=== PATIENT | female | born 1950 | race Caucasian/White ===

== ENCOUNTER 2017-10-21 11:47 | Emergency (ER) | payer OTHER ==
[~2017-10-21] VITALS: Ht 157.5 cm; Wt 67.6 kg
[~2017-10-21 11:47] MED LIST: ALBU1NEB10 INH; ALBUAER2 INH; ASCO100061 PO; ASPI1TAB66 PO; ATOR-54 PO; ATRINSX NEB; BENZ100C7 PO; CHOL100041 PO; CLON0.5T3 PO; CLOP1TAB15 PO; CYAN1SUB6 PO; DOXY-300 PO; FLUT0.0529 NAE; GLC5 PO; HYG/25 PO; HYOS0.1255 PO; IMDSR60 PO; LEVO75TA5 PO; METO50TA7 PO; MULTTAB58 PO; NTRGSL/4 UT; PANT40TA PO; PROB1CAP32 PO; REPA0.5T PO
[2017-10-21 11:50] VITALS: TEMP 36.8; Ht 157.5 cm; Wt 67.6 kg
[2017-10-21] MEDS ORDERED: HYDROCODONE/ACETAMOPHEN 5/325MG TAB PO STA (12:05)
[2017-10-21] MEDS ORDERED: KETOROLAC TROMETHAMINE 60 MG/2 ML VIAL IM STA (12:05)
[2017-10-21] MEDS ORDERED: DEXAMETHASONE SOD INJ 4 MG/ML 5 ML VIAL IM STA (12:05)
[2017-10-21] MEDS ORDERED: DEXAMETHASONE **PF** INJ 10 MG/ML VIAL ONE (12:15)
[2017-10-21] MEDS ORDERED: VITACAP25 PO (12:47)
[2017-10-21] MEDS ORDERED: BIOT1CAP9 (12:47)
[2017-10-21] MEDS ORDERED: FLUT0.15 NAE (12:47)
[2017-10-21] MEDS ORDERED: PRVHFAIN INH (12:47)
[2017-10-21] MEDS ORDERED: ATOR-26 PO (12:47)
[2017-10-21] MEDS ORDERED: ECHI450C PO (12:47)
[2017-10-21] MEDS ORDERED: LXP10 PO (12:47)
[2017-10-21] MEDS ORDERED: EMPA1TAB PO (12:47)
[2017-10-21] MEDS ORDERED: LEVO50TA6 PO (12:47)
[2017-10-21] MEDS ORDERED: ALBINS/ INH (12:47)
[2017-10-21] MEDS ORDERED: MAGN250T9 PO (12:47)
[2017-10-21] MEDS ORDERED: REPA1TAB5 PO (12:47)
[2017-10-21] MEDS ORDERED: NPR375 PO (12:47)
--- NOTE | 2017-10-21 13:19 | DIAGNOSTIC IMAGING REPORT ---
L-SPINE MIN 4 VIEWS ROUTINE CLINICAL HISTORY: 67 years-old Female presenting with low back pain with right radiculopathy. TECHNIQUE: Frontal, bilateral oblique, lateral, and coned in lateral views of the lumbar spine were obtained. COMPARISON: Correlation made to CT of the abdomen and pelvis from 09/04/2016. FINDINGS: Normal lumbar lordosis. Vertebral bodies maintain normal height and alignment. Intervertebral disc spaces preserved. No advanced degenerative change. No compression deformity or evidence of subluxation. No pars defects noted. Moderate stool burden throughout the colon. No evidence of obstruction. Severe atherosclerosis of the abdominal aorta. IMPRESSION: No radiographic evidence of acute osseous injury of the lumbar spine are advanced degenerative change. Electronically signed by: Fab Chapman M.D. 10/21/2017 1:18 PM Dictated Date/Time: 10/21/2017 1:15 PM
--- NOTE | 2017-10-21 13:33 | EMERGENCY ROOM VISIT NOTE ---
ED Visit Note First contact with patient: 11:57 CHIEF COMPLAINT: Right leg pain HISTORY OF PRESENT ILLNESS: This 67-year-old female presents the ER with chief complaint of right leg pain. The patient denies any redness, swelling of the right leg. The patient states that the pain started in the buttocks and right thigh 4 days ago and now is radiating down the back of her leg. The patient denies any recent injury to her back or any back pain. The patient does admit to having back surgery in 2001. She states that was performed in [place] where they just moved a muscle off of a nerve. The patient currently denies any urinary symptoms or any loss of bowel or bladder control. The patient denies any saddle anesthesia. The patient denies any chest pain or shortness of breath. The patient denies any history of blood clots. The patient states that she called her doctor today and they told her to come to the emergency room. REVIEW OF SYSTEMS: 10 system review was performed and was negative unless stated otherwise history of present illness. PMH: The patient is healthy; there is no significant medical or surgical history. SOCIAL HISTORY: Patient lives at home. PHYSICAL EXAM: Vital Signs normal: Reviewed Nurse's notes and agree. GEN.: 67- year-old white female appears in no acute distress. MENTAL STATUS: Alert and oriented in no acute distress. LUMBAR SPINE: No gross bony abnormality noted. Patient is tender to palpation over lower the spinous processes. She is tender to palpation over the right paravertebral region, left side nontender. She has full range of motion of the lumbar spine with pain elicited with flexion,. Muscle strength is 5 out of 5 bilateral lower extremities and symmetrical. NEURO : Patient is able to heel and toe walk without difficulty. I lateral patellar and Achilles reflexes are 2+. Sensation is intact to pinprick bilateral lower extremities. Positive straight leg raise on the right. RIGHT LEG: No erythema or edema noted. No palpable cords noted. The patient has mild tenderness palpation in the posterior calf and proximal anterior thigh. Negative Homans. EMERGENCY DEPARTMENT COURSE: The patient was evaluated. The patient was given Decadron 10 mg IM, Toradol 60 mg IM and [place] 5/325 mg one tablet by mouth for pain. X-ray of the lumbar spine was ordered and interpreted by the radiologist and myself. DIAGNOSTICS:L-SPINE MIN 4 VIEWS ROUTINE CLINICAL HISTORY: 67 years-old Female presenting with low back pain with right radiculopathy. TECHNIQUE: Frontal, bilateral oblique, lateral, and coned in lateral views of the lumbar spine were obtained. COMPARISON: Correlation made to CT of the abdomen and pelvis from 09/04/2016. FINDINGS: Normal lumbar lordosis. Vertebral bodies maintain normal height and alignment. Intervertebral disc spaces preserved. No advanced degenerative change. No compression deformity or evidence of subluxation. No pars defects noted. Moderate stool burden throughout the colon. No evidence of obstruction. Severe atherosclerosis of the abdominal aorta. IMPRESSION: No radiographic evidence of acute osseous injury of the lumbar spine are advanced degenerative change. Electronically signed by: Fab Chapman M.D. 10/21/2017 1:18 PM The patient was informed of the findings. She was reevaluated was feeling much better. She was independently evaluated by Dr. Castellanos who agreed with treatment plan. The patient was discharged home with her driving. DIAGNOSIS: Right sciatica DISCHARGE INSTRUCTIONS AND TREATMENT: Ibuprofen 600 mg every 6 hours with food for pain. Rx is given for [place] 5/325 mg. 1-2 tablets every 6 hours as needed for more severe pain. Dispense [address] taking the [place] .take Medrol dosepak as prescribed. Start this tomorrow. Avoid staying in any one position for an extended period of time. If symptoms persist or worsen, follow up with your family doctor for referral for additional testing. Problem List Medical Problems: (1) CAD (coronary artery disease) Status: Chronic (2) Carotid stenosis Status: Chronic (3) COPD (chronic obstructive pulmonary disease) Status: Chronic (4) DM2 (diabetes mellitus, type 2) Status: Chronic (5) History of left heart catheterization (LHC) Permanent Comment: 6 stents total, last stent WILTON in 2010 Status: Chronic (6) HTN (hypertension) Status: Chronic (7) Hypothyroidism Status: Chronic (8) Tobacco abuse Status: Chronic Surgical Problems: (1) H/O colonoscopy Status: Chronic (2) History of carpal tunnel surgery Status: Chronic Current/Historical Medications Scheduled Ascorbic Acid (Ascorbic Acid), 1,000 MG PO DAILY Aspirin (Ec-81 Aspirin), 81 MG PO DAILY Atorvastatin (Lipitor), 80 MG PO DAILY Chlorthalidone (Hygroton), 25 MG PO DAILY Cholecalciferol (D 1000), 1,000 UNIT PO DAILY Clonazepam (Klonopin), 0.5 MG PO HS Cyanocobalamin (B-12), 2,500 MCG PO DAILY Doxycycline (Monohydrate) (Doxycycline), 100 MG PO BID Echinacea (Echinacea), 900 MG PO DAILY Empagliflozin (Jardiance), 10 MG PO DAILY Escitalopram Oxalate (Escitalopram Oxalate), 10 MG PO DAILY Fluticasone Propionate (Nasal) (Flonase Allergy Relief), 2 SPRAYS VANESSA DAILY Glipizide (Glipizide), 5 MG PO 30 MIN BEFORE A MEAL Isosorbide Mononitrate (Isosorbide Mononitrate ER), 60 MG PO DAILY Levothyroxine Sodium (Levothyroxine Sodium), 50 MCG PO DAILYBB Magnesium (Magnesium), 250 MG PO DAILY Metoprolol Succ (Toprol Xl) (Toprol-Xl), 50 MG PO DAILY Naproxen (Naproxen), 375 MG PO BIDM Pantoprazole Sodium (Protonix), 40 MG PO DAILY Repaglinide (Prandin), 0.5 MG PO AC Vitamins C & E (Vitamin C & E), 1 CAP PO DAILY Scheduled PRN Albuterol (Ventolin Hfa), 2 PUFFS INH QID PRN for Albuterol Sulf (Proventil 0.083% 2.5MG/3ML), 2.5 MG INH Q4 PRN for SOB/Wheezing Hyoscyamine Sulfate (Levsin), 0.125 MG PO Q6 PRN for GI Upset Ipratropium [place] (Atrovent 0.02% Soln), 2.5 ML NEB Q4H PRN for Wheezing Nitroglycerin (Nitrostat), 0.4 MG UT UD PRN for Chest Pain Miscellaneous Medications Biotin (Biotin), Unknown Dose Allergies Coded Allergies: No Known Allergies (Verified , 10/21/17) Vital Signs Date Time Temp Pulse Resp B/P (MAP) Pulse Ox O2 Delivery O2 Flow Rate FiO2 10/21/17 11:50 36.8 62 18 127/70 96 Room Air Medications Administered Medications (Trade) Dose Ordered Sig/Joshua Route Start Time Stop Time Status Last Admin Dose Admin Ketorolac Tromethamine (Toradol Inj) 60 mg NOW STAT IM 10/21/17 12:05 10/21/17 12:08 DC 10/21/17 12:19 60 MG Acetaminophen/ Hydrocodone Bitart ([place] 5/325 Tab) 1 tab NOW STAT PO 10/21/17 12:05 10/21/17 12:08 DC 10/21/17 12:19 1 TAB Dexamethasone Sodium Phosphate (Dexamethasone Inj Pf) 10 mg STK-MED ONCE .ROUTE 10/21/17 12:15 10/21/17 12:16 DC 10/21/17 12:20 10 MG Departure Information Referrals Jocy Lang D.O. (PCP) Patient Instructions My [facility]
[2017-10-21] MEDS ORDERED: HYDR-5688 PO (13:35)
[2017-10-21] MEDS ORDERED: METH4PAK PO ×2 (13:35→13:43)
--- NOTE | 2017-10-21 13:43 | EMERGENCY ROOM VISIT NOTE ---
ED Visit Note First contact with patient: 11:57 67-year-old female with right leg and back pain was fully evaluated by Alicia fuentes PA-C. Please see her note. I also independently evaluated the patient. The patient appears to have sciatica. She was given pain medication here which helped considerably. The patient was given encouraged to follow-up with her family physician.
[2017-10-21 13:45] VITALS: BP 129/65; PULSE 51; O2SAT 95
== END 2017-10-21 13:47 | disposition home or self-care (01) ==
LOC: C.EDB 11:49 → C.EDD 13:47
DX: M54.41 Lumbago with sciatica, right side (principal); I25.10 Atherosclerotic heart disease of native coronary artery without angina pectoris; J44.9 Chronic obstructive pulmonary disease, unspecified; E11.9 Type 2 diabetes mellitus without complications; I10 Essential (primary) hypertension; E03.9 Hypothyroidism, unspecified; Z98.890 Other specified postprocedural states; Z79.82 Long term (current) use of aspirin; Z79.84 Long term (current) use of oral hypoglycemic drugs; Z79.899 Other long term (current) drug therapy

== ENCOUNTER 2022-09-18 19:39 | Inpatient (IN) ==
[2022-09-18] MEDS ORDERED: ALBUTEROL 0.083% NEBU SOLN 3 ML VIAL NEB STA (19:59)
--- NOTE | 2022-09-18 20:03 | Emergency Department Note ---
Impression & Plan Hypoxia, Viral URI, Elevated troponin, COPD exacerbation ED Provider Note NAME: AMERICO BARBOSA AGE: 72 SEX: F : 1950 ARRIVES VIA: Ambulance INFORMANT: Patient ED PROVIDER(S): Johan Lazaro DO CHIEF COMPLAINT: shortness of breath HPI: Patient is a 72-year-old female with a past medical history of CAD, hypertension, COPD and diabetes and carotid stenosis who presents to the ER for upper respiratory symptoms that started this past Friday. She admits to a cough, congestion, and some shortness of breath with this. This did get worse tonight. She wears 2 L just at night. She was found by EMS to be hypoxic with pulse ox in the mid 80s. She was placed on oxygen and brought in. She denies any chest pain. No belly pain, nausea, vomiting, or diarrhea. She has been using nebs, a Z-Brad and is still on steroids. She took 40 mg of prednisone earlier today. She notes her PCP gives her rescue packs to take at home when the symptoms occur. ROS: See above HPI for pertinent positives & negatives. A total of 10 systems reviewed and were otherwise negative. PAST MEDICAL HISTORY:See Below PAST SURGICAL HISTORY:See Below FAMILY HISTORY:See Below SOCIAL HISTORY:See Below HOME MEDICATIONS:See Below ALLERGIES:See Below VITALS:See Below PHYSICAL EXAMINATION: GENERAL: Sitting up in bed, alert, chronically ill-appearing, disheveled with persistent cough on 2 L nasal cannula EYE EXAM: normal conjunctiva. OROPHARYNX: no exudate, no erythema, lips, buccal mucosa, and tongue normal and mucous membranes are moist NECK: supple, no nuchal rigidity, no adenopathy, non-tender LUNGS: Clear to auscultation. Normal chest wall mechanics HEART: no murmurs, S1 normal and S2 normal ABDOMEN: abdomen soft, non-tender, normo-active bowel sounds, no masses, no rebo und or guarding. UPPER EXTREMITIES: upper extremities are grossly normal. LOWER EXTREMITIES: No pitting edema. NEURO EXAM: Normal sensorium, cranial nerves II-XII grossly intact, normal speech, no gross weakness of arms, no gross weakness of legs. MEDICAL DECISION MAKING: Patient is a 72-year-old female who presents ER for shortness of breath. She normally wears 2 L at night. Does have a history of COPD. IV was established blood work was obtained. She is found at home hypoxic in the mid 80s. She was placed on oxygen and brought in. She was given a neb treatment. She already took steroids and a Z-Brad earlier today. She took 40 mg of prednisone. Labs s how no significant leukocytosis or anemia. BMP with slightly elevated chloride at 108. LFTs bilirubin was unremarkable. Troponin slightly elevated at 21. Lipase normal. Influenza COVID and RSV were negative. Chest x-ray was clean. Patient was given a neb treatment. She remained on oxygen while in the ER was updated bedside discussed with the hospitalist for further evaluation. Triage Nursing notes reviewed. Limited review of prior medical records performed Vital Signs: reviewed and remarkable for HTN Differential diagnosis: Differential diagnoses includes but is not limited to pneumonia, bronchitis, COPD/Asthma exacerbation, pneumothorax, pulmonary embolism, congestive heart failure, acute coronary syndrome ER treatment provided: See below Diagnostics interpreted by me: ECG: Sinus rhythm rate 64 Normal axis No PVCs QTC 412 Cardiac Monitoring: An order was placed for continuous cardiac monitoring. The monitor shows a rate of 70 with sinus rhythm. Laboratory studies: As stated above and show below. Imaging studies: Portable AP upright 1 view of the chest unremarkable Consultation(s): Discussed with [facility] hospitalist Dr. Mckeon approved for further evaluation. Procedures: none Critical Care: None Past Med/Surg History Social History Smoking Status: Current every day smoker Preferred Language: Latvian Feels Safe at Home: Yes Allergies Allergies Allergy/AdvReac Type Severity Reaction Status Date / Time metformin Allergy diarrhea, Verified 09/18/22 23:07 lost weight Home Meds Home Medications Medication Instructions Recorded Confirmed albuterol sulfate 2.5 mg/3 mL 2.5 mg continuous nebulization Q4 09/18/22 09/18/22 (0.083 %) solution for nebulization PRN Shortness Of Breath Or Wheezing ascorbic acid (vitamin C) 1,000 mg 1 g PO DAILY 09/18/22 09/18/22 tablet (Vitamin C) aspirin 81 mg tablet,delayed 81 mg PO DAILY 09/18/22 09/18/22 release atorvastatin 80 mg tablet 80 mg PO DAILY 09/18/22 09/18/22 azithromycin 250 mg tablet 250 mg PO DAILY 09/18/22 09/18/22 cholecalciferol (vitamin D3) 25 25 mcg PO DAILY 09/18/22 09/18/22 mcg (1,000 unit) tablet (Vitamin D3) cranberry extract-vitamin C 250 1 cap PO DAILY 09/18/22 09/18/22 mg-60 mg capsule cyanocobalamin (vitamin B-12) 1,000 mcg PO DAILY 09/18/22 09/18/22 1,000 mcg tablet (Vitamin B-12) echinacea 450 mg capsule 900 mg PO DAILY 09/18/22 09/18/22 empagliflozin 25 mg tablet 25 mg PO QAM 09/18/22 09/18/22 (Jardiance) escitalopram oxalate 10 mg tablet 10 mg PO DAILY 09/18/22 09/18/22 fluticasone propionate 50 2 spray intranasal DAILY 09/18/22 09/18/22 mcg/actuation nasal spray,suspension hydrochlorothiazide 12.5 mg capsule 12.5 mg PO QAM 09/18/22 09/18/22 hyoscyamine sulfate 0.125 mg 0.125 mg PO Q4 PRN Cramps 09/18/22 09/18/22 sublingual tablet ipratropium bromide 0.02 % 0 ml continuous nebulization Q4 09/18/22 09/18/22 solution for inhalation PRN Shortness Of Breath Or Wheezing isosorbide mononitrate 60 mg 60 mg PO DAILY 09/18/22 09/18/22 tablet,extended release 24 hr levothyroxine 50 mcg tablet 50 mcg PO DAILY 09/18/22 09/18/22 lisinopril 2.5 mg tablet 2.5 mg PO DAILY 09/18/22 09/18/22 metoprolol tartrate 25 mg tablet 25 mg PO BID 09/18/22 09/18/22 mirtazapine 15 mg tablet 15 mg PO HS 09/18/22 09/18/22 nitroglycerin 0.4 mg sublingual 0.4 mg sublingual DIRECTED PRN 09/18/22 09/18/22 tablet Chest Pain pantoprazole 40 mg tablet,delayed 40 mg PO DAILY 09/18/22 09/18/22 release prednisone 10 mg tablet 10 mg PO DIRECTED 09/18/22 09/18/22 Results & Data (ED) Vital Signs Vital Signs - 24 hr 09/18/22 19:46 09/18/22 19:46 09/18/22 19:59 Temperature 37.1 C Temperature Source Oral Pulse Rate 66 Pulse Rate from SpO2 Sensor Respiratory Rate 20 Respiratory Effort / Characteristics Non-Labored Spontaneous Blood Pressure 151/93 H Blood Pressure Mean 112 Pulse Oximetry 95 93 Oxygen Delivery Method Room Air Room Air Room Air Oxygen Flow Rate Sepsis Recent Fever Within 48 Hours No Sepsis New/Unexplained Change in Mental Status No Sepsis Action Taken by Nursing No Action Required 09/18/22 20:13 09/18/22 19:52 09/18/22 20:00 Temperature Temperature Source Pulse Rate 64 72 Pulse Rate from SpO2 Sensor 66 71 Respiratory Rate 18 17 Respiratory Effort / Characteristics Blood Pressure Blood Pressure Mean Pulse Oximetry 98 92 96 Oxygen Delivery Method Nasal Cannula Oxygen Flow Rate 2 Sepsis Recent Fever Within 48 Hours Sepsis New/Unexplained Change in Mental Status Sepsis Action Taken by Nursing 09/18/22 20:34 09/18/22 21:00 09/18/22 21:30 Temperature Temperature Source Pulse Rate 69 68 66 Pulse Rate from SpO2 Sensor 67 68 66 Respiratory Rate 17 24 18 Respiratory Effort / Characteristics Blood Pressure Blood Pressure Mean Pulse Oximetry 90 88 L 96 Oxygen Delivery Method Room Air Oxygen Flow Rate 4 Sepsis Recent Fever Within 48 Hours Sepsis New/Unexplained Change in Mental Status Sepsis Action Taken by Nursing 09/18/22 22:00 09/18/22 22:08 09/18/22 22:30 Temperature Temperature Source Pulse Rate 59 L 59 L 70 Pulse Rate from SpO2 Sensor 58 L 59 L 75 Respiratory Rate 15 17 18 Respiratory Effort / Characteristics Blood Pressure 132/58 L Blood Pressure Mean 82 Pulse Oximetry 96 96 97 Oxygen Delivery Method Oxygen Flow Rate Sepsis Recent Fever Within 48 Hours Sepsis New/Unexplained Change in Mental Status Sepsis Action Taken by Nursing 09/18/22 23:02 Temperature Temperature Source Pulse Rate 74 Pulse Rate from SpO2 Sensor Respiratory Rate 21 Respiratory Effort / Characteristics Blood Pressure Blood Pressure Mean Pulse Oximetry Oxygen Delivery Method Oxygen Flow Rate Sepsis Recent Fever Within 48 Hours Sepsis New/Unexplained Change in Mental Status Sepsis Action Taken by Nursing Laboratory Data Result diagrams: 09/18/22 19:46 09/18/22 20:52 Lab Results 09/18/22 09/18/22 09/18/22 Range/Units 19:46 19:46 20:10 WBC 10.07 (4.8-10.8) K/ul RBC 4.40 (3.93-5.22) M/uL Hgb 13.5 (12.0-16.0) g/dl Hct 39.6 (34.1-44.9) % MCV 90.0 (80.0-100.0) fL MCH 30.7 (25.0-34.0) pg MCHC 34.1 (32.0-36.0) g/dL RDW Std Deviation 44.6 (36.4-46.3) fL RDW Coeff of Moe 13.5 (11.5-14.5) % Plt Count 226 (130-400) K/uL MPV 12.0 (9.4-12.3) fL Immature Gran % (Auto) 2.8 % Neut % (Auto) 89.9 % Lymph % (Auto) 4.9 % [place] % (Auto) 1.9 % Eos % (Auto) 0.0 % Baso % (Auto) 0.5 % Neut # (Auto) 9.06 H (1.4-6.5) K/uL Lymph # (Auto) 0.49 L (1.2-3.4) K/uL [place] # (Auto) 0.19 L (0.24-0.82) K/uL Eos # (Auto) 0.00 (0-0.50) K/uL Baso # (Auto) 0.05 (0-0.2) K/uL Immature Gran # (Auto) 0.28 H (0.00-0.02) K/uL Sodium 139 (136-145) mmol/L Potassium TNP Chloride 108 H (98-107) mmol/L Carbon Dioxide 22 (21-32) mmol/L Anion Gap 9 (3-11) BUN 17 (6-23) mg/dl Creatinine 1.08 (0.6-1.2) mg/dl Est Cr Clr Drug Dosing Not Reportable Est GFR ( Amer) 59.8 ml/min Est GFR (Non-Af Amer) 51.6 ml/min BUN/Creatinine Ratio 15.7 (10-20) Glucose 240 H (70-99(Fasting)) mg/dl Calcium 8.9 (8.5-10.1) mg/dl Total Bilirubin 0.4 (0.2-1.0) mg/dl AST TNP ALT 25 (7-52) U/L Alkaline Phosphatase 81 (34-104) U/L Troponin I High Sens 21.2 H (0-14) pg/ml Total Protein 6.4 (6.0-8.3) gm/dl Albumin 4.0 (3.4-5.0) gm/dl Globulin 2.4 L (2.5-4.0) gm/dl Albumin/Globulin Ratio 1.7 (0.9-2) Lipase 12 (11-82) U/L SARS-CoV-2 (PCR) NEGATIVE (Negative) Influenza Type A (PCR) Negative (Neg) Influenza Type B (PCR) Negative (Neg) RSV (RT-PCR) Negative (Neg) 09/18/22 Range/Units 20:52 WBC (4.8-10.8) K/ul RBC (3.93-5.22) M/uL Hgb (12.0-16.0) g/dl Hct (34.1-44.9) % MCV (80.0-100.0) fL MCH (25.0-34.0) pg MCHC (32.0-36.0) g/dL RDW Std Deviation (36.4-46.3) fL RDW Coeff of Moe (11.5-14.5) % Plt Count (130-400) K/uL MPV (9.4-12.3) fL Immature Gran % (Auto) % Neut % (Auto) % Lymph % (Auto) % [place] % (Auto) % Eos % (Auto) % Baso % (Auto) % Neut # (Auto) (1.4-6.5) K/uL Lymph # (Auto) (1.2-3.4) K/uL [place] # (Auto) (0.24-0.82) K/uL Eos # (Auto) (0-0.50) K/uL Baso # (Auto) (0-0.2) K/uL Immature Gran # (Auto) (0.00-0.02) K/uL Sodium (136-145) mmol/L Potassium 4.1 Chloride (98-107) mmol/L Carbon Dioxide (21-32) mmol/L Anion Gap (3-11) BUN (6-23) mg/dl Creatinine (0.6-1.2) mg/dl Est Cr Clr Drug Dosing Est GFR ( Amer) ml/min Est GFR (Non-Af Amer) ml/min BUN/Creatinine Ratio (10-20) Glucose (70-99(Fasting)) mg/dl Calcium (8.5-10.1) mg/dl Total Bilirubin (0.2-1.0) mg/dl AST 24 ALT (7-52) U/L Alkaline Phosphatase (34-104) U/L Troponin I High Sens (0-14) pg/ml Total Protein (6.0-8.3) gm/dl Albumin (3.4-5.0) gm/dl Globulin (2.5-4.0) gm/dl Albumin/Globulin Ratio (0.9-2) Lipase (11-82) U/L SARS-CoV-2 (PCR) (Negative) Influenza Type A (PCR) (Neg) Influenza Type B (PCR) (Neg) RSV (RT-PCR) (Neg) Administered Medications Discontinued Medications Albuterol (Albuterol 0.083% Nebu Soln 3 Ml Vial) 2.5 mg NEB NOW STA; Protocol Stop: 09/18/22 20:00 Last Admin: 09/18/22 20:13 Dose: 2.5 mg Documented By: Imaging Data Radiologist's Impression: Chest X-Ray 09/18/22 20:00 SINGLE VIEW CHEST CLINICAL HISTORY: Atypical chest pain. FINDINGS: An AP, portable, upright chest radiograph is compared to study dated 09/04/2016. The heart is enlarged noting atherosclerotic calcification of the thoracic aorta. The pulmonary vascular is noncontrast. Chronic interstitial thickening is similar to previous. There are punctate calcific granulomas. The lungs and pleural spaces are otherwise clear. No pneumothorax is seen. The skeletal structures are osteopenic. The bony thorax is grossly intact. IMPRESSION: Cardiomegaly with no active disease in the chest. ACT 112: Negative or not required by law. Electronically signed by: Eran Xiong M.D. 09/18/2022 8:31 PM Discharge Plan Visit Data Chief Complaint: Shortness of Breath/Dyspnea Stated Complaint: shortness of breath ED Provider: Johan Lazaro Discharge Problem: Hypoxia, Viral URI, Elevated troponin, COPD exacerbation Forms Stand Alone Forms: My [facility] Prescriptions Prescriptions: No Action atorvastatin 80 mg tablet 80 mg PO DAILY ascorbic acid (vitamin C) [Vitamin C] 1,000 mg Tablet 1 g PO DAILY prednisone 10 mg tablet 10 mg PO DIRECTED Rx Instructions: Start 09/18/22. Take 5 tabs for 2 days, 4 tabs for 2 days,3 tabs for 2 days, 2 tabs for 2 days, 1 tab for 2 days. albuterol sulfate 2.5 mg /3 mL (0.083 %) solution for nebulization 2.5 mg continuous nebulization Q4 PRN (Reason: Shortness Of Breath Or Wheezing) azithromycin 250 mg tablet 250 mg PO DAILY Rx Instructions: resque kit: cyanocobalamin (vitamin B-12) [Vitamin B-12] 1,000 mcg Tablet 1,000 mcg PO DAILY Rx Instructions: sl aspirin [Aspir-Low] 81 mg Tablet,Delayed Release (Dr/Ec) 81 mg PO DAILY isosorbide mononitrate 60 mg tablet extended release 24 hr 60 mg PO DAILY levothyroxine 50 mcg tablet 50 mcg PO DAILY pantoprazole 40 mg tablet,delayed release (DR/EC) 40 mg PO DAILY hyoscyamine sulfate 0.125 mg Tablet, Sublingual 0.125 mg PO Q4 PRN (Reason: Cramps) hydrochlorothiazide 12.5 mg capsule 12.5 mg PO QAM nitroglycerin 0.4 mg tablet, sublingual 0.4 mg sublingual DIRECTED PRN (Reason: Chest Pain) Rx Instructions: May repeat 3 times mirtazapine 15 mg tablet 15 mg PO HS fluticasone propionate 50 mcg/actuation spray,suspension 2 spray INTRANASAL DAILY lisinopril 2.5 mg tablet 2.5 mg PO DAILY ipratropium bromide 0.02 % solution 0 ml continuous nebulization Q4 PRN (Reason: Shortness Of Breath Or Wheezing) Rx Instructions: MIX WITH VIAL OF ALBUTEROL escitalopram oxalate 10 mg Tablet 10 mg PO DAILY metoprolol tartrate 25 mg tablet 25 mg PO BID cholecalciferol (vitamin D3) [Vitamin D3] 25 mcg (1,000 unit) Tablet 25 mcg PO DAILY echinacea 450 mg Capsule 900 mg PO DAILY Rx Instructions: administer with meals cranberry extract-vitamin C 250-60 mg Capsule 1 cap PO DAILY Rx Instructions: PLUS VIT-E Jardiance 25 mg tablet 25 mg PO QAM Referrals Referrals: Jocy Lang DO [Primary Care Provider] -
[2022-09-18 20:14] LABS: Basophils # (auto) 0.05 K/uL (0-0.2); Basophils % (auto) 0.5 %; Hematocrit (blood only) 39.6 % (34.1-44.9); Hemoglobin 13.5 g/dl (12.0-16.0); Immature Granulocytes # (auto) 0.28 K/uL (0.00-0.02); Immature Granulocytes % (auto) 2.8 %; Lymphocytes # (auto) 0.49 K/uL (1.2-3.4); Lymphocytes % (auto) 4.9 %; Mean Corpuscular Hemoglobin 30.7 pg (25.0-34.0); Mean Corpuscular Hgb Conc 34.1 g/dL (32.0-36.0); Monocytes # (auto) 0.19 K/uL (0.24-0.82); Monocytes % (auto) 1.9 %; Neutrophils # (auto) 9.06 K/uL (1.4-6.5); Neutrophils % (auto) 89.9 %; Platelet Count 226 K/uL (130-400); RDW Coefficient of Variation 13.5 % (11.5-14.5); RDW Standard Deviation 44.6 fL (36.4-46.3); White Blood Count 10.07 K/ul (4.8-10.8)
--- NOTE | 2022-09-18 20:32 | XRay Report ---
SINGLE VIEW CHEST CLINICAL HISTORY: Atypical chest pain. FINDINGS: An AP, portable, upright chest radiograph is compared to study dated 09/04/2016. The heart is enlarged noting atherosclerotic calcification of the thoracic aorta. The pulmonary vascular is non contrast. Chronic interstitial thickening is similar to previous. There are punctate calcific granulo mas. The lungs and pleural spaces are otherwise clear. No pneumothorax is seen. The skeletal structur es are osteopenic. The bony thorax is grossly intact. IMPRESSION: Cardiomegaly with no active disease in the chest. ACT 112: Negative or not required by law. Electronically signed by: Eran Xiong M.D. 09/18/2022 8:31 PM
[2022-09-18 20:45] LABS: Alanine Aminotransferase 25 U/L (7-52); Albumin Globulin Ratio 1.7 (0.9-2); Alkaline Phosphatase 81 U/L (34-104); Anion Gap 9 (3-11); BUN Creatinine Ratio 15.7 (10-20); Bilirubin,Total 0.4 mg/dl (0.2-1.0); Blood Urea Nitrogen 17 mg/dl (6-23); Calcium 8.9 mg/dl (8.5-10.1); Carbon Dioxide 22 mmol/L (21-32); Chloride 108 mmol/L (98-107); Est GFR (African American) 59.8 ml/min; Est GFR (Non-African American) 51.6 ml/min; Globulin 2.4 gm/dl (2.5-4.0); Glucose 240 mg/dl (70-99(Fasting)); Lipase 12 U/L (11-82); Sodium 139 mmol/L (136-145); Total Protein 6.4 gm/dl (6.0-8.3); Troponin I High Sensitivity 21.2 pg/ml (0-14)
[2022-09-18 21:07] LABS: Influenza A virus by PCR Negative (Neg); Influenza B virus by PCR Negative (Neg); RSV by PCR Negative (Neg); SARS CoV2 RNA(COVID-19) InHosp NEGATIVE (Negative)
[2022-09-18 21:31] LABS: Potassium 4.1 mmol/L (3.5-5.1)
[2022-09-19] MEDS ORDERED: NITROGLYCERIN SL 0.4 MG/TAB TAB SL PRN ×2 (00:37)
[2022-09-19] MEDS ORDERED: IPRATROPIUM BROMIDE NEB SOLN 0.02% 2.5 ML VIAL NEB PRN (00:37)
[2022-09-19] MEDS ORDERED: HYOSCYAMINE SULFATE 0.125 MG TAB PO PRN (00:37)
[2022-09-19] MEDS ORDERED: ACETAMINOPHEN 325 MG TAB PO PRN (00:37)
[2022-09-19] MEDS ORDERED: ALBUT/IPRATROP 3MG/0.5MG NEB 3 ML VIAL INH PRN (01:28)
--- NOTE | 2022-09-19 01:44 | History and Physical Report ---
DATE OF ADMISSION: 09/18/2022. CHIEF COMPLAINT: Shortness of breath. HISTORY OF PRESENT ILLNESS: A 72-year-old female with past medical history significant for type 2 diabetes, hyperlipidemia, hypothyroidism, history of COPD, hypertension, bilateral carotid artery stenosis, history of CAD, status post stent, GERD, history of tobacco abuse, presents with shortness of breath. The patient says since Friday, she was not feeling well. Friday, she started taking a rescue prednisone and Zithromax, but she was not getting better, so she came to the hospital. She uses 2 liters oxygen in the nighttime. At the arrival of medics, she was saturating 85% at home, on oxygen, she is saturating okay on 3 liters, resting comfortably. She says she has had cough with whitish phlegm. Denies any fever or chills. No chest pain, no headache. Her vision is not that great for some time. No earache. Nose is always runny. She has some sore throat, but with prednisone and Zithromax her sore throat has resolved. Appetite is okay. No difficulty swallowing. No abdominal pain. Normal bowel and bladder movements. ALLERGIES: METFORMIN. PAST MEDICAL HISTORY: As mentioned above. PAST SURGICAL HISTORY: Carpal tunnel surgery on right side, colonoscopy, EGD, cardiac stent placements, cataract surgeries, sciatic nerve neuroplasty. MEDICATIONS: The patient is on albuterol nebulization q. 4 hours p.r.n., vitamin C 1 gram p.o. daily, aspirin 81 mg p.o. daily, atorvastatin 80 mg p.o. daily, Z-Brad last dose tomorrow, vitamin D 25 mcg p.o. daily, vitamin C one capsule p.o. daily, vitamin B12 1000 mcg p.o. daily, Jardiance 25 mg p.o. a.m., Lexapro 10 mg p.o. daily, fluticasone 2 sprays intranasal daily, hydrochlorothiazide 12.5 mg p.o. q.a.m., hyoscyamine 0.125 mg p.o. q. 4 hours p.r.n., ipratropium nebulization q. 4 hours p.r.n., Imdur 60 mg p.o. daily, levothyroxine 50 mcg p.o. daily, lisinopril 2.5 mg p.o. daily, metoprolol tartrate 25 mg p.o. b.i.d., Remeron 15 mg p.o. at bedtime, nitroglycerin 0.4 mg sublingual p.r.n., Protonix 40 mg p.o. daily, prednisone as directed. FAMILY HISTORY: Significant for sister has breast cancer, leukemia, CABG; father had heart disorder; mother has IA; brother has prostate cancer; brother has throat cancer. SOCIAL HISTORY: . Smokes 0.3 packs a day. No alcohol use. No drug use. REVIEW OF SYSTEMS: As per HPI. Rest of the review of systems is negative. PHYSICAL EXAMINATION: GENERAL: The patient is of moderate build, not in acute distress. VITAL SIGNS: Temperature 37.1, pulse 74, respiratory rate 21, blood pressure 132/58, oxygen 97% on room air. HEENT: Pupils equal, round and reactive to light. Oral mucosa moist. NECK: No JVD, no neck masses. CARDIOVASCULAR: S1 and S2 heard. Regular rate and rhythm. No murmur, no gallop. RESPIRATORY SYSTEM: Normal AP diameter. Mild occasional bilateral wheezing, no crackles. ABDOMEN: Soft, bowel sounds present, nontender, no distention. CENTRAL NERVOUS SYSTEM: Cranial nerves II through XII grossly intact, nonfocal. EXTREMITIES: No edema, no erythema. LABORATORY DATA: WBC 10.07, hemoglobin 13.5, hematocrit 39.6, platelets 226. Sodium 139, potassium 4.1, chloride 108, bicarbonate 22, BUN 17, creatinine 1.08, serum glucose 240, calcium 8.9, total bilirubin 0.4, AST 24, ALT 25, alkaline phosphatase 81, troponin I 21.2. [id number]. SARS-CoV-2 PCR negative. Influenza A and B PCR negative. RSV PCR negative. IMAGING DATA: Chest x-ray, no acute disease. EKG: Normal sinus rhythm at a rate of 64, no significant change was found. ASSESSMENT AND PLAN: This is a 72-year-old female who presents with chronic obstructive pulmonary disease, shortness of breath. 1. Shortness of breath and chronic obstructive pulmonary disease exacerbation: Failed outpatient treatment with rescue kit. We will place her on nebs around the clock and p.r.n. IV Solu-Medrol 40 mg t.i.d. Continue home inhalers. Closely monitor in the [employer] tele. 2. Mild elevation of troponin, most likely demand ischemia. Will follow serial enzymes. 3. History of coronary artery disease, status post stent. Continue home medications of metoprolol, atorvastatin and aspirin. 4. Type 2 diabetes mellitus. Hold home medications. Placed on insulin sliding scale. Follow the blood sugars. 5. History of hypertension: Continue metoprolol, Imdur, hydrochlorothiazide. and lisinopril. We will monitor the blood pressure. 6. Gastroesophageal reflux disease: Continue Protonix. 7. Hypothyroidism: On Synthroid. 8. Deep venous thrombosis prophylaxis: Lovenox. DISPOSITION: Closely monitor in the med tele. PT/OT prior to discharge. Social service to help with discharge planning. Job ID: [id number] LUCIANO
[2022-09-19] MEDS ORDERED: DEXTROSE 50% 50 ML SYRINGE IV PRN (01:45)
[2022-09-19] MEDS ORDERED: GLUCOSE 10 TAB/TUBE PO PRN (01:45)
[2022-09-19] MEDS ORDERED: CARBOHYDRATES FOR HYPOGLYCEMIA PO PRN (01:45)
[2022-09-19] MEDS ORDERED: GLUCOSE 40% GEL 15 GM TUBE PO PRN (01:45)
[2022-09-19] MEDS ORDERED: GLUCAGON FOR INJ 1 MG VIAL IM PRN (01:45)
[2022-09-19] MEDS: INSULIN ASPART PER UNIT SC SCH ×3 (01:53→12:30)
[2022-09-19] MEDS: methylPREDNISolone 40 MG in SYRINGE 0 ML IV SCH ×2 (02:42→09:03)
[2022-09-19 05:57] LABS: Hematocrit (blood only) 38.5 % (34.1-44.9); Mean Corpuscular Hemoglobin 30.6 pg (25.0-34.0); Mean Corpuscular Hgb Conc 33.8 g/dL (32.0-36.0); Mean Corpuscular Volume 90.6 fL (80.0-100.0); Mean Platelet Volume 11.7 fL (9.4-12.3); Platelet Count 222 K/uL (130-400); RDW Coefficient of Variation 13.5 % (11.5-14.5); RDW Standard Deviation 45.1 fL (36.4-46.3); Red Blood Count 4.25 M/uL (3.93-5.22); White Blood Count 14.03 K/ul (4.8-10.8)
[2022-09-19 06:20] LABS: BUN Creatinine Ratio 24.7 (10-20); Calcium 8.6 mg/dl (8.5-10.1); Creatinine Clr Calc Pharmacy 49.5 ml/min; Est GFR (African American) 75.6 ml/min; Est GFR (Non-African American) 65.2 ml/min; Magnesium 2.1 mg/dl (1.7-2.4)
[2022-09-19 06:22] LABS: Basophils # (auto) 0.04 K/uL (0-0.2); Basophils % (auto) 0.3 %; Eosinophils # (auto) 0.01 K/uL (0-0.50); Eosinophils % (auto) 0.1 %; Immature Granulocytes # (auto) 0.26 K/uL (0.00-0.02); Immature Granulocytes % (auto) 1.9 %; Lymphocytes % (auto) 4.3 %; Monocytes # (auto) 0.46 K/uL (0.24-0.82); Monocytes % (auto) 3.3 %; Neutrophils # (auto) 12.66 K/uL (1.4-6.5); Neutrophils % (auto) 90.1 %
[2022-09-19] MEDS ORDERED: LEVOTHYROXINE SODIUM 50 MCG TABLET PO SCH (06:30)
[2022-09-19] MEDS: ALBUT/IPRATROP 3MG/0.5MG NEB 3 ML VIAL NEB SCH ×4 (07:17→14:00)
[2022-09-19 08:22] LABS: Estimated Average Glucose 180 mg/dl; Hemoglobin A1C 7.9 % (4.5-5.6)
[2022-09-19] MEDS ORDERED: hydroCHLOROthiazide 25 MG TAB PO SCH (09:00)
[2022-09-19] MEDS ORDERED: ATORVASTATIN 40 MG TAB PO SCH (09:00)
[2022-09-19] MEDS ORDERED: NON-FORMULARY MEDICATION (Cranberry Extract-Vitamin C 250-60 mg Capsule) PO SCH (09:00)
[2022-09-19] MEDS ORDERED: ESCITALOPRAM OXALATE 10 MG TAB PO SCH (09:00)
[2022-09-19] MEDS ORDERED: ASCORBIC ACID 500 MG TAB PO SCH (09:00)
[2022-09-19] MEDS ORDERED: CYANOCOBALAMIN (B-12) 500 MCG TABLET PO SCH (09:00)
[2022-09-19] MEDS ORDERED: PANTOprazole 40 MG TAB PO SCH (09:00)
[2022-09-19] MEDS ORDERED: ASPIRIN 81 MG ECTAB PO SCH (09:00)
[2022-09-19] MEDS ORDERED: AZITHROMYCIN 250 MG TAB PO SCH (09:00)
[2022-09-19] MEDS ORDERED: ENOXAPARIN INJ 40 MG/0.4 ML SYR SQ SCH (09:00)
[2022-09-19] MEDS ORDERED: FLUTICASONE PROPIONATE NA SPR 16 GM BTL SCH (09:00)
[2022-09-19] MEDS ORDERED: CHOLECALCIFEROL 1,000 UNITS 25 MCG TAB PO SCH (09:00)
[2022-09-19] MEDS ORDERED: METOPROLOL TARTRATE 25 MG TAB PO SCH (09:00)
[2022-09-19] MEDS ORDERED: lisinopril 2.5 MG TAB PO SCH (09:00)
[2022-09-19] MEDS ORDERED: ISOSORBIDE MONO EXTENDED REL 60 MG TABCR PO SCH (09:00)
--- NOTE | 2022-09-19 12:53 | Discharge Summary ---
Date of Service September 19, 2022 Admission HPI Per Admitting Provider A 72-year-old female with past medical history significant for type 2 diabetes, hyperlipidemia, hypothyroidism, history of COPD, hypertension, bilateral carotid artery stenosis, history of CAD, status post stent, GERD, history of tobacco abuse, presents with shortness of breath. The patient says since Friday, she was not feeling well. Friday, she started taking a rescue prednisone and Zithromax, but she was not getting better, so she came to the hospital. She uses 2 liters oxygen in the nighttime. At the arrival of medics, she was saturating 85% at home, on oxygen, she is saturating okay on 3 liters, resting comfortably. She says she has had cough with whitish phlegm. Denies any fever or chills. No chest pain, no headache. Her vision is not that great for some time. No earache. Nose is always runny. She has some sore throat, but with prednisone and Zithromax her sore throat has resolved. Appetite is okay. No difficulty swallowing. No abdominal pain. Normal bowel and bladder movements. Admission Exam Per Admitting Provider GENERAL: The patient is of moderate build, not in acute distress. VITAL SIGNS: Temperature 37.1, pulse 74, respiratory rate 21, blood pressure 132/58, oxygen 97% on room air. HEENT: Pupils equal, round and reactive to light. Oral mucosa moist. NECK: No JVD, no neck masses. CARDIOVASCULAR: S1 and S2 heard. Regular rate and rhythm. No murmur, no gallop. RESPIRATORY SYSTEM: Normal AP diameter. Mild occasional bilateral wheezing, no crackles. ABDOMEN: Soft, bowel sounds present, nontender, no distention. CENTRAL NERVOUS SYSTEM: Cranial nerves II through XII grossly intact, nonfocal. EXTREMITIES: No edema, no erythema. Principal Diagnosis COPD exacerbation Discharge Exam GENERAL: The patient is of moderate build, not in acute distress. HEENT: Pupils equal, round and reactive to light. Oral mucosa moist. NECK: No JVD, no neck masses. CARDIOVASCULAR: S1 and S2 heard. Regular rate and rhythm. No murmur, no gallop. RESPIRATORY SYSTEM: Normal AP diameter. Mild occasional bilateral wheezing, no crackles. ABDOMEN: Soft, bowel sounds present, nontender, no distention. CENTRAL NERVOUS SYSTEM: Cranial nerves II through XII grossly intact, nonfocal. EXTREMITIES: No edema, no erythema. Discharge Data Allergies Allergy/AdvReac Type Severity Reaction Status Date / Time metformin Allergy diarrhea, Verified 09/18/22 23:07 lost weight Consultations 09/18/22 21:38 ED Decision to Admit Stat Hospital Course (1) COPD (chronic obstructive pulmonary disease): Patient with history of COPD on 2L NC at night and PRN, DM2, hypothyroidism, HTN, CAD s/p PCI presented with worsening shortness of breath for 3 days and cough productive of white sputum. She was started on IV steroids and scheduled breathing treatments. She was feeling better after intervention and wanting to go home. She had 2 step evaluation and qualified for home O2 with ambulation, which was set up for her. She was discharged on her prednisone taper that she started as outpatient and 4 days of Augmentin with follow up with her PCP scheduled for 09/25/2022. Total Time Total Time Spent Total Time Spent (In Minutes): 25 Total Time Includes: Examination of the Patient, Discharge Planning and Medication Reconciliation Discharge Plan Discharge Items Patient Disposition: Home - Self-Care Reason For Visit: SOB Discharge Diagnosis: COPD exacerbation Activity: As commented below Activity Comment: rest today, increase activity daily Non-emergency contact: Primary Care Provider and Sand [employer]aster Call non-emergency contact if: you have any medication questions and your symptoms worsen Follow-up/Referrals: Jocy Lang, [Primary Care Provider] - (Date & Time 09/25/2022 10:20 AM Provider Chuy Wong MD [facility] ) Diet: Carb Consistent or DM2 and Heart Healthy Addtl Attending Provider Instructions: You were admitted for shortness of breath likely from a COPD exacerbation. You required steroids, breathing treatments, and antibiotics. You had some improvement and felt better today but still with some wheezing. You should continue your steroid taper that you started prior to your admission. You should complete a 5 day course of Augmentin that is prescribed at discharge. You have an appointment with your Primary care doctors office for 09/25/2022. You were given oxygen concentrator for when you are walking around and should use this until you have a chance to see your Primary on 09/25/2022 to reassess your need for oxygen while walking. Pending Studies at Discharge: No Stand-Alone Forms: My [employer], Smoking Cessation Medications and DC Order Prescriptions: New amoxicillin-pot clavulanate 875-125 mg tablet 1 tab PO BID Qty: 7 0RF Robitussin Cough-Chest Robert DM 5-100 mg/5 mL liquid 10 ml PO Q8H PRN (Reason: cough) Qty: 118 0RF Continued atorvastatin 80 mg tablet 80 mg PO DAILY ascorbic acid (vitamin C) [Vitamin C] 1,000 mg Tablet 1 g PO DAILY prednisone 10 mg tablet 10 mg PO DIRECTED Rx Instructions: Start 09/18/22. Take 5 tabs for 2 days, 4 tabs for 2 days,3 tabs for 2 days, 2 tabs for 2 days, 1 tab for 2 days. albuterol sulfate 2.5 mg /3 mL (0.083 %) solution for nebulization 2.5 mg continuous nebulization Q4 PRN (Reason: Shortness Of Breath Or Wheezing) cyanocobalamin (vitamin B-12) [Vitamin B-12] 1,000 mcg Tablet 1,000 mcg PO DAILY Rx Instructions: sl aspirin [Aspir-Low] 81 mg Tablet,Delayed Release (Dr/Ec) 81 mg PO DAILY isosorbide mononitrate 60 mg tablet extended release 24 hr 60 mg PO DAILY levothyroxine 50 mcg tablet 50 mcg PO DAILY pantoprazole 40 mg tablet,delayed release (DR/EC) 40 mg PO DAILY hyoscyamine sulfate 0.125 mg Tablet, Sublingual 0.125 mg PO Q4 PRN (Reason: Cramps) hydrochlorothiazide 12.5 mg capsule 12.5 mg PO QAM nitroglycerin 0.4 mg tablet, sublingual 0.4 mg sublingual DIRECTED PRN (Reason: Chest Pain) Rx Instructions: May repeat 3 times mirtazapine 15 mg tablet 15 mg PO HS fluticasone propionate 50 mcg/actuation spray,suspension 2 spray INTRANASAL DAILY lisinopril 2.5 mg tablet 2.5 mg PO DAILY ipratropium bromide 0.02 % solution 0 ml continuous nebulization Q4 PRN (Reason: Shortness Of Breath Or Wheezing) Rx Instructions: MIX WITH VIAL OF ALBUTEROL escitalopram oxalate 10 mg Tablet 10 mg PO DAILY metoprolol tartrate 25 mg tablet 25 mg PO BID cholecalciferol (vitamin D3) [Vitamin D3] 25 mcg (1,000 unit) Tablet 25 mcg PO DAILY echinacea 450 mg Capsule 900 mg PO DAILY Rx Instructions: administer with meals cranberry extract-vitamin C 250-60 mg Capsule 1 cap PO DAILY Rx Instructions: PLUS VIT-E Jardiance 25 mg tablet 25 mg PO QAM Discontinued azithromycin 250 mg tablet 250 mg PO DAILY Rx Instructions: resque kit: Discharge Orders: Discharge Order (Routine); Ordered 09/19/22 Ordered By: Hira Husain/Other Patient Handouts: Managing Type 2 Diabetes Admission Data Admit Date/Time: 09/18/22 23:43 Attending Provider: Hira Coker Admit Provider: Sam Solares Primary Care Provider: Jocy Lang Other Providers: Sam Solares
[2022-09-19] MEDS ORDERED: MIRTAZAPINE TAB 15 MG TAB PO SCH (21:00)
--- NOTE | 2022-09-20 22:38 | Electrocardiogram Report ---
Test Reason : Blood Pressure : / mmHG Vent. Rate : 064 BPM Atrial Rate : 064 BPM P-R Int : 146 ms QRS Dur : 076 ms QT Int : 400 ms P-R-T Axes : 094 078 050 degrees QTc Int : 412 ms Normal sinus rhythm Normal ECG When compared with ECG of 04-SEP-2016 13:38, No significant change was found Confirmed by Cosme Duong ([id number]) on 09/20/2022 10:38:10 PM Referred By: REFERRED SELF Confirmed By:Cosme Duong
== END 2022-09-19 15:00 | disposition home or self-care (01) | DRG 191 ==
LOC: ED 19:39 → 2W 23:43